=== PATIENT | female | born 1950 | race Caucasian/White ===

== ENCOUNTER → 2017-05-09 | Outpatient (CLI) | payer OTHER ==
--- NOTE | 2017-05-15 15:52 | MG ---
HISTORY: SCREENING Comparison: Multiple priors dating back to March 29, 2009 FINDINGS: Bilateral CC and MLO projections of the right and left breast were obtained. Scattered fibroglandula r tissue is seen to be present without significant interval change. No suspicious architectural dist ortion, mass or clustered microcalcifications can be observed to suggest malignancy. No skin thicken ing or nipple retraction is appreciated. No pathological lymphadenopathy can be identified. Benign- appearing nodules are noted within the right and left breast. IMPRESSION: NO RADIOGRAPHIC EVIDENCE OF MALIGNANCY. ACR CATEGORY 2 - benign findings. FOLLOW-UP EXAM 1 YEAR. Diagnostic CAD was utilized and reviewed. * 0 (ZERO) - ASSESSMENT INCOMPLETE; ADDITIONAL IMAGING IS NEEDED. * 1/1 (ONE) - NEGATIVE. * 2/II (TWO) - BENIGN FINDINGS. * 3/III (THREE) - PROBABLY BENIGN FINDING; SHORT INTERVAL FOLLOW-UP SUGGESTED. * 4/IV (FOUR) - SUSPICIOUS ABNORMALITY; BIOPSY SHOULD BE CONSIDERED. * 5/V (FIVE) - HIGHLY SUSPICIOUS OF MALIGNANCY; BIOPSY SHOULD BE PERFORMED. A NEGATIVE X-RAY REPORT SHOULD NOT DELAY BIOPSY IF A DOMINANT OR CLINICALLY SUSPICIOUS MASS IS PRESENT; 4 TO 8 PERCENT OF CANCERS ARE NOT IDENTIFIED BY X-RAY. A NEGA TIVE REPORT MAY REINFORCE THE CLINICAL IMPRESSION. ADENOSIS AND DENSE BREASTS MAY OBSCURE AN UNDERLY ING NEOPLASM. Reported By:
== END ==
LOC: RAD 07:51
PROVIDERS: ATTEND Internal Medicine
DX: Z12.31 Encounter for screening mammogram for malignant neoplasm of breast (principal)
CPT/HCPCS: 77067

== ENCOUNTER 2023-06-01 12:06 | Inpatient (IN) ==
[2023-06-01] MEDS ORDERED: ZOSYN VIAL 3.375 GRAMS 3.375 G in NS 100 ML IV 100 ML IV SCH (16:22)
[2023-06-01 16:57] LABS: BASOPHILS % (AUTO) 0.3 % (0.2-1.0); EOSINOPHILS % (AUTO) 0.4 % (0.9-2.9); HEMATOCRIT 40.1 % (36.0-47.0); HEMOGLOBIN 13.9 g/dL (12.0-16.0); LYMPHOCYTES # (AUTO) 3.3 X10^3/uL (1.3-2.9); LYMPHOCYTES % (AUTO) 33.6 % (21.0-51.0); MEAN CORPUSCULAR HEMOGLOBIN 28.9 pg (27.0-34.0); MEAN CORPUSCULAR HGB CONC 34.8 g/dL (33.0-35.0); MEAN PLATELET VOLUME 8.2 fL (7.4-11.0); MONOCYTES # (AUTO) 0.6 x10^3/uL (0.3-0.8); MONOCYTES % (AUTO) 6.6 % (0.0-13.0); NEUTROPHILS # (AUTO) 5.7 x10^3/uL (2.2-4.8); NEUTROPHILS % (AUTO) 59.1 % (42.0-75.0); PLATELET COUNT 234 X10^3/uL (150.0-450.0); RED BLOOD COUNT 4.83 X10^6/uL (3.5-5.4); RED CELL DISTRIBUTION WIDTH 12.7 % (11.6-16.5); WHITE BLOOD COUNT 9.7 X10^3/uL (3.6-10.0)
[2023-06-01 17:09] LABS: ALANINE AMINOTRANSFERASE 229 Units/L (12-78); ALBUMIN 3.5 g/dL (3.4-5.0); ALKALINE PHOSPHATASE 185 Units/L (46-116); ASPARTATE AMINO TRANSFERASE 121 Units/L (15-37); BLOOD UREA NITROGEN 10 mg/dL (7-18); CALCIUM 8.5 mg/dL (8.5-10.1); CARBON DIOXIDE 32.1 mmol/L (21-32); CHLORIDE 102 mmol/L (98-107); COR NA(FOR HYPERGLY) 141 mmol/L (136-145); CREATININE 0.71 mg/dL (0.55-1.02); GLUCOSE 112 mg/dL (65-99); POTASSIUM 3.2 mmol/L (3.5-5.1); SODIUM 141 mmol/L (136-145); TOTAL PROTEIN 7.2 g/dL (6.4-8.2); eGFR NON BLACK RACES > 60 (>60)
[2023-06-01] MEDS ORDERED: ZOSYN VIAL 3.375 GRAMS IV ONE (17:35)
[2023-06-01] MEDS ORDERED: NS 100 ML IV 100 ML ONE (17:36)
[2023-06-01] MEDS: NS 1,000 ML IV 1,000 ML IV SCH (17:42)
[2023-06-01] MEDS ORDERED: ULTRAM PO ONE (18:40)
[2023-06-01] MEDS ORDERED: ROXICODONE TAB 5 MG PO ONE (19:00)
[2023-06-01] MEDS ORDERED: REQUIP PO ONE (19:00)
[2023-06-01] MEDS ORDERED: NIFEDIPINE 60 MG PO SCH (21:00)
[2023-06-01] MEDS ORDERED: OXYCODONE 10 MG PO SCH (21:00)
[2023-06-01] MEDS: REQUIP PO SCH (21:20)
[2023-06-01] MEDS: ULTRAM PO SCH (21:21)
[2023-06-01] MEDS: LYRICA CAP 50 mg PO SCH (21:38)
[2023-06-01] MEDS: AMBIEN PO SCH (21:38)
[2023-06-01] MEDS: PROCARDIA XL 24-hr PO SCH (21:38)
[2023-06-01] MEDS: KLONOPIN TAB 0.5 MG PO SCH (21:39)
[2023-06-01] MEDS: PEPCID TAB 40 MG PO SCH (21:39)
[2023-06-01] MEDS: PROTONIX TAB 40 MG PO SCH (21:39)
[2023-06-01] MEDS: ILOTYCIN OPHTH OINT OP SCH (21:44)
[2023-06-01] MEDS: VOLTAREN 1 % GEL MULTI DOSE TUBE TOP SCH (21:44)
[2023-06-01] MEDS: ROXICODONE TAB 5 MG PO SCH (23:29)
[2023-06-02] MEDS: ZOSYN VIAL 3.375 GRAMS 3.375 G in NS 100 ML IV 100 ML IV SCH ×2 (00:01→12:59)
[2023-06-02] MEDS: LYRICA CAP 50 mg PO SCH ×3 (05:03→21:02)
[2023-06-02] MEDS: ULTRAM PO SCH ×3 (05:03→21:01)
[2023-06-02] MEDS: REQUIP PO SCH ×3 (05:03→21:01)
[2023-06-02] MEDS: ROXICODONE TAB 5 MG PO SCH ×2 (05:20→10:54)
[2023-06-02] MEDS: NS 1,000 ML IV 1,000 ML IV SCH ×2 (05:21→21:54)
[2023-06-02 05:55] LABS: BASOPHILS % (AUTO) 0.3 % (0.2-1.0); EOSINOPHILS # (AUTO) 0.1 x10^3/uL (0.0-0.2); EOSINOPHILS % (AUTO) 0.8 % (0.9-2.9); HEMATOCRIT 37.7 % (36.0-47.0); HEMOGLOBIN 13.1 g/dL (12.0-16.0); LYMPHOCYTES # (AUTO) 3.2 X10^3/uL (1.3-2.9); LYMPHOCYTES % (AUTO) 46.1 % (21.0-51.0); MEAN CORPUSCULAR HEMOGLOBIN 28.9 pg (27.0-34.0); MEAN CORPUSCULAR HGB CONC 34.7 g/dL (33.0-35.0); MEAN CORPUSCULAR VOLUME 83.3 fL (80.0-100.0); MEAN PLATELET VOLUME 8.3 fL (7.4-11.0); MONOCYTES # (AUTO) 0.5 x10^3/uL (0.3-0.8); MONOCYTES % (AUTO) 7.2 % (0.0-13.0); NEUTROPHILS # (AUTO) 3.2 x10^3/uL (2.2-4.8); NEUTROPHILS % (AUTO) 45.6 % (42.0-75.0); PLATELET COUNT 222 X10^3/uL (150.0-450.0); RED BLOOD COUNT 4.53 X10^6/uL (3.5-5.4); RED CELL DISTRIBUTION WIDTH 12.8 % (11.6-16.5)
[2023-06-02 06:07] LABS: ALANINE AMINOTRANSFERASE 288 Units/L (12-78); ALKALINE PHOSPHATASE 192 Units/L (46-116); ASPARTATE AMINO TRANSFERASE 184 Units/L (15-37); BLOOD UREA NITROGEN 8 mg/dL (7-18); CALCIUM 7.9 mg/dL (8.5-10.1); CARBON DIOXIDE 28.3 mmol/L (21-32); CHLORIDE 103 mmol/L (98-107); COR CA(FOR HYPOALB) 8.7 mg/dL (8.5-10.1); COR NA(FOR HYPERGLY) 142 mmol/L (136-145); CREATININE 0.74 mg/dL (0.55-1.02); GLUCOSE 180 mg/dL (65-99); POTASSIUM 3.1 mmol/L (3.5-5.1); SODIUM 140 mmol/L (136-145); TOTAL PROTEIN 6.6 g/dL (6.4-8.2); eGFR NON BLACK RACES > 60 (>60)
[2023-06-02] MEDS ORDERED: CONSULT PHARMACY - POTASSIUM & MAGNESIUM XX SCH (07:00)
[2023-06-02] MEDS: PROzac PO SCH (08:44)
[2023-06-02] MEDS: PEPCID TAB 40 MG PO SCH ×2 (08:44→21:02)
[2023-06-02] MEDS: PROCARDIA XL PO SCH ×2 (08:46→12:25)
[2023-06-02] MEDS: KLONOPIN TAB 0.5 MG PO SCH ×2 (08:48→21:02)
[2023-06-02] MEDS: TOPROL XL PO SCH (08:48)
[2023-06-02] MEDS: PROTONIX TAB 40 MG PO SCH ×2 (08:51→21:02)
[2023-06-02] MEDS: HYDROCHLOROTHIAZIDE 25 MG TAB PO SCH (08:51)
[2023-06-02] MEDS: K-DUR TAB 20 MEQ PO SCH ×2 (08:51→12:32)
[2023-06-02] MEDS ORDERED: NIFEDIPINE 30 MG PO SCH (09:00)
[2023-06-02] MEDS: FORTAZ or TAZICEF VIAL INJ 1 G in NS 100 ML IV 100 ML IV SCH ×3 (10:47→21:00)
[2023-06-02] MEDS ORDERED: ROXICODONE TAB 5 MG PO PRN (11:36)
--- NOTE | 2023-06-02 12:00 | DR.UPDATE ---
H&P Update Prescription drug monitoring program results: PDMP reviewed and no concerns identified H&P Reviewed: Yes Any changes to H&P?: Yes Changes noted:: IS A 73 YEAR OLD PATIENT OF OURS. SHE PRESENTED TO THE HOSPITAL A DIRECT ADMISSION FOR TREATMENT OF RIGHT LOWER EXTREMITY CELLULITIS. SHE REPORTS HAVING PAIN, SWELLING, AND REDNESS TO THE RIGHT FOOT AND GREAT TOE FOR THE PAST TWO WEEKS. ADDITIONALLY, SHE COMPLAINS OF WEAKNESS, FATIGUE, DECREASED APPETITE, AND DECREASED ORAL INTAKE. SHE HAS TAKEN AUGMENTIN 875-125MG BID AND DOXYCYCLINE TWICE A DAY WITHOUT IMPROVEMENT IN SYMPTOMS. ON ARRIVAL TO THE HOSPITAL, HER VITALS WERE: 97.9-85-20-95%-178/83. LABS WERE OBTAINED. WBC 9.7, RBC 4.83, HGB 13.9, HCT 40.1, PLT COUNT 234, SODIUM 141, POTASSIUM 3.2, CHLORIDE 102, CARBON DIOXIDE 32.1, BUN 10, CREATININE 0.71, GLUCOSE 112, CALCIUM 8.5, TOTAL BILI 0.80, AST 121, ALT 229, ALK PHOS 185, TOTAL PROTEIN 7.2, ALBUMIN 3.5. BLOOD CULTURES WERE SET UP. ON ADMISSION, SHE WAS STARTED ON NORMAL SALINE AT 80 ML/HR, LEVAQUIN 500MG IV DAILY, FORTAZ 1G IV Q8H. HER HOME MEDICATIONS OF VITAMIN D3, KLONOPIN, VOLTAREN GEL, ERYTHROMYCIN, FAMOTIDINE, PROZAC, HCTZ, TOPROL XL, PROCARDIA, OXYCODONE, PANTOPRAZOLE, PREGABALIN, ROPINIROLE, TRAMADOL, AND ZOLPIDEM. OTHERWISE, WE PLAN TO FOLLOW UP WITH AM LABS AND CONTINUE TO MONITOR. TIME SPENT ON CLINICAL ASSESSMENT, REVIEWING LABS AND IMAGING, DECISION MAKING, AND DOCUMENTATION GREATER THAN 75 MINUTES. Patient was examined?: Yes
[2023-06-02] MEDS: VOLTAREN 1 % GEL MULTI DOSE TUBE TOP SCH ×4 (12:25→21:03)
[2023-06-02] MEDS: LEVAQUIN PREMIX IV 500 MG 500 MG/100 ML BAG IV SCH (12:33)
[2023-06-02] MEDS: AMBIEN PO SCH (21:01)
[2023-06-02] MEDS: PROCARDIA XL 24-hr PO SCH (21:02)
[2023-06-02] MEDS: ILOTYCIN OPHTH OINT OP SCH (21:03)
[2023-06-03] MEDS: REQUIP PO SCH ×3 (05:00→21:29)
[2023-06-03] MEDS: ULTRAM PO SCH ×3 (05:00→21:29)
[2023-06-03] MEDS: FORTAZ or TAZICEF VIAL INJ 1 G in NS 100 ML IV 100 ML IV SCH ×3 (05:00→21:29)
[2023-06-03] MEDS: LYRICA CAP 50 mg PO SCH ×3 (05:07→21:29)
[2023-06-03 06:07] LABS: BASOPHILS % (AUTO) 0.4 % (0.2-1.0); EOSINOPHILS # (AUTO) 0.1 x10^3/uL (0.0-0.2); EOSINOPHILS % (AUTO) 1.5 % (0.9-2.9); HEMATOCRIT 36.3 % (36.0-47.0); HEMOGLOBIN 12.5 g/dL (12.0-16.0); LYMPHOCYTES # (AUTO) 3.7 X10^3/uL (1.3-2.9); LYMPHOCYTES % (AUTO) 50.4 % (21.0-51.0); MEAN CORPUSCULAR HEMOGLOBIN 28.8 pg (27.0-34.0); MEAN CORPUSCULAR HGB CONC 34.4 g/dL (33.0-35.0); MEAN CORPUSCULAR VOLUME 83.6 fL (80.0-100.0); MEAN PLATELET VOLUME 8.4 fL (7.4-11.0); MONOCYTES # (AUTO) 0.6 x10^3/uL (0.3-0.8); MONOCYTES % (AUTO) 7.8 % (0.0-13.0); NEUTROPHILS # (AUTO) 2.9 x10^3/uL (2.2-4.8); NEUTROPHILS % (AUTO) 39.9 % (42.0-75.0); PLATELET COUNT 232 X10^3/uL (150.0-450.0); RED BLOOD COUNT 4.35 X10^6/uL (3.5-5.4); RED CELL DISTRIBUTION WIDTH 12.6 % (11.6-16.5); WHITE BLOOD COUNT 7.3 X10^3/uL (3.6-10.0)
[2023-06-03 06:20] LABS: ALANINE AMINOTRANSFERASE 177 Units/L (12-78); ALBUMIN 2.8 g/dL (3.4-5.0); ALKALINE PHOSPHATASE 162 Units/L (46-116); ASPARTATE AMINO TRANSFERASE 39 Units/L (15-37); BLOOD UREA NITROGEN 8 mg/dL (7-18); CALCIUM 8.1 mg/dL (8.5-10.1); CARBON DIOXIDE 31.8 mmol/L (21-32); CHLORIDE 102 mmol/L (98-107); COR CA(FOR HYPOALB) 9.1 mg/dL (8.5-10.1); COR NA(FOR HYPERGLY) 141 mmol/L (136-145); CREATININE 0.73 mg/dL (0.55-1.02); GLUCOSE 138 mg/dL (65-99); POTASSIUM 3.4 mmol/L (3.5-5.1); SODIUM 140 mmol/L (136-145); TOTAL PROTEIN 6.2 g/dL (6.4-8.2); eGFR NON BLACK RACES > 60 (>60)
[2023-06-03] MEDS ORDERED: CONSULT PHARMACY - POTASSIUM & MAGNESIUM XX SCH (07:00)
[2023-06-03] MEDS ORDERED: K-DUR TAB 20 MEQ PO SCH (09:00)
[2023-06-03] MEDS: LEVAQUIN PREMIX IV 500 MG 500 MG/100 ML BAG IV SCH (09:07)
[2023-06-03] MEDS: KLONOPIN TAB 0.5 MG PO SCH ×2 (09:07→21:28)
[2023-06-03] MEDS: PEPCID TAB 40 MG PO SCH ×2 (09:08→21:30)
[2023-06-03] MEDS: PROTONIX TAB 40 MG PO SCH ×2 (09:08→21:30)
[2023-06-03] MEDS: PROCARDIA XL PO SCH (09:08)
[2023-06-03] MEDS: PROzac PO SCH (09:08)
[2023-06-03] MEDS: TOPROL XL PO SCH (09:08)
[2023-06-03] MEDS: HYDROCHLOROTHIAZIDE 25 MG TAB PO SCH (09:08)
[2023-06-03] MEDS: VOLTAREN 1 % GEL MULTI DOSE TUBE TOP SCH ×4 (09:32→21:30)
--- NOTE | 2023-06-03 12:36 | PCM.PROG ---
Progress Note Progress Note for Day of Date of Exam: 06/03/23 Subjective Subjective: Patient seen at bedside, no acute events overnight. She is currently admitted for right big toe cellulitis. She failed outpatient antibiotics. She is currently seeing Podiatry and has had 3 debridements for that toe infection. She states the redness has improved since yesterday. Labs/imaging reviewed - K: 3.4 WBC 7.3 Hgb 12.5 AP 162 AST/ALT 39/177 Plan: continue IV levaquin and fortaz. Follow cultures. Replace K. Continue hydration. Continue home medications. Monitor toe redness and swelling. Monitor AM labs/imaging. Past Medical Family Social History Allergies: Allergies DAGOBERTO Inhibitors Allergy (Verified 06/01/23 17:19) aspirin Allergy (Verified 06/01/23 17:19) corn Allergy (Verified 06/02/23 09:10) Milk Containing Products (Dairy) Allergy (Verified 06/02/23 09:10) procaine [From Novocain] Allergy (Verified 06/01/23 17:19) soy Allergy (Verified 06/02/23 09:11) Sjhtfay-PRJ-NtE Reductase Inhibitor Allergy (Verified 06/01/23 17:19) Vital Signs and I&O's Vital Signs: Vital Signs Temperature 98.6 F Temperature 97.9 F Pulse Rate [Left Brachial] 61 Pulse Rate [Left Brachial] 84 Respiratory Rate 20 Respiratory Rate 20 Respiratory Rate 18 Respiratory Rate 18 Blood Pressure [Left Arm] 107/53 Blood Pressure [Left Arm] 173/78 O2 Sat by Pulse Oximetry 97 O2 Sat by Pulse Oximetry 98 Intake and Output: Intake & Output 05/31/23 06/01/23 06/02/23 06/03/23 23:59 23:59 23:59 23:59 Intake Total 565 / 565 3611 / 3611 452 / 452 Output Total 0 / 0 Balance 565 / 565 3611 / 3611 452 / 452 Physical Exam Oriented: Normal Throat: Normal Respiratory: Normal Cardiovascular: Normal Palpation: Normal Tenderness: Normal Skin: Red, Tender and Wound (Right first toe: erythema and warmth noted, slight swelling, no drainage ) Musculoskeletal: Normal Psychiatric: Normal Mood Description: Calm Affect: Normal Speech Pattern: Clear and Appropriate Laboratory and Diagnostics 06/03/23 05:25 06/03/23 05:25 Labs: Laboratory WBC 7.3 X10^3/uL (3.6-10.0) 06/03/23 05:25 RBC 4.35 X10^6/uL (3.5-5.4) 06/03/23 05:25 Hgb 12.5 g/dL (12.0-16.0) 06/03/23 05:25 Hct 36.3 % (36.0-47.0) 06/03/23 05:25 MCV 83.6 fL (80.0-100.0) 06/03/23 05:25 MCH 28.8 pg (27.0-34.0) 06/03/23 05:25 MCHC 34.4 g/dL (33.0-35.0) 06/03/23 05:25 RDW 12.6 % (11.6-16.5) 06/03/23 05:25 Plt Count 232 X10^3/uL (150.0-450.0) 06/03/23 05:25 MPV 8.4 fL (7.4-11.0) 06/03/23 05:25 Neut % (Auto) 39.9 % (42.0-75.0) L 06/03/23 05:25 Lymph % (Auto) 50.4 % (21.0-51.0) 06/03/23 05:25 [place] % (Auto) 7.8 % (0.0-13.0) 06/03/23 05:25 Eos % (Auto) 1.5 % (0.9-2.9) 06/03/23 05:25 Baso % (Auto) 0.4 % (0.2-1.0) 06/03/23 05:25 Neut # (Auto) 2.9 x10^3/uL (2.2-4.8) 06/03/23 05:25 Lymph # (Auto) 3.7 X10^3/uL (1.3-2.9) H 06/03/23 05:25 [place] # (Auto) 0.6 x10^3/uL (0.3-0.8) 06/03/23 05:25 Eos # (Auto) 0.1 x10^3/uL (0.0-0.2) 06/03/23 05:25 Baso # (Auto) 0.0 X10^3/uL (0.0-0.1) 06/03/23 05:25 Absolute Nucleated RBC 0.1 /100WBC 06/03/23 05:25 Sodium 140 mmol/L (136-145) 06/03/23 05:25 Corrected Sodium 141 mmol/L (136-145) 06/03/23 05:25 Potassium 3.4 mmol/L (3.5-5.1) L 06/03/23 05:25 Chloride 102 mmol/L (98-107) 06/03/23 05:25 Carbon Dioxide 31.8 mmol/L (21-32) 06/03/23 05:25 BUN 8 mg/dL (7-18) 06/03/23 05:25 Creatinine 0.73 mg/dL (0.55-1.02) 06/03/23 05:25 Est GFR (MDRD) Af Amer > 60 (>60) 06/03/23 05:25 Est GFR (MDRD) Non-Af > 60 (>60) 06/03/23 05:25 Glucose 138 mg/dL (65-99) H 06/03/23 05:25 Calcium 8.1 mg/dL (8.5-10.1) L 06/03/23 05:25 Corrected Calcium 9.1 mg/dL (8.5-10.1) 06/03/23 05:25 Magnesium 2.0 mg/dL (2.0-2.9) 06/03/23 05:25 Total Bilirubin 0.50 mg/dL (0.2-1.0) 06/03/23 05:25 AST 39 Units/L (15-37) H 06/03/23 05:25 ALT 177 Units/L (12-78) H 06/03/23 05:25 Alkaline Phosphatase 162 Units/L (46-116) H 06/03/23 05:25 Creatine Kinase 58 Units/L (26-192) 06/02/23 05:23 Total Protein 6.2 g/dL (6.4-8.2) L 06/03/23 05:25 Albumin 2.8 g/dL (3.4-5.0) L 06/03/23 05:25 Globulin 3.4 g/dL (2.5-4.5) 06/03/23 05:25 Albumin/Globulin Ratio 0.8 Ratio (1.1-2.1) L 06/03/23 05:25
[2023-06-03] MEDS: NS 1,000 ML IV 1,000 ML IV SCH ×2 (16:54→21:29)
[2023-06-03] MEDS: ILOTYCIN OPHTH OINT OP SCH (21:28)
[2023-06-03] MEDS: AMBIEN PO SCH (21:28)
[2023-06-03] MEDS: PROCARDIA XL 24-hr PO SCH (21:30)
[2023-06-04] MEDS: FORTAZ or TAZICEF VIAL INJ 1 G in NS 100 ML IV 100 ML IV SCH (05:00)
[2023-06-04] MEDS: ULTRAM PO SCH (05:01)
[2023-06-04] MEDS: LYRICA CAP 50 mg PO SCH (05:02)
[2023-06-04] MEDS: REQUIP PO SCH (05:02)
[2023-06-04 05:48] VITALS: O2SAT 97
[2023-06-04 06:20] LABS: BASOPHILS % (AUTO) 0.4 % (0.2-1.0); EOSINOPHILS # (AUTO) 0.1 x10^3/uL (0.0-0.2); EOSINOPHILS % (AUTO) 1.8 % (0.9-2.9); HEMATOCRIT 37.3 % (36.0-47.0); HEMOGLOBIN 12.6 g/dL (12.0-16.0); LYMPHOCYTES # (AUTO) 3.2 X10^3/uL (1.3-2.9); LYMPHOCYTES % (AUTO) 42.1 % (21.0-51.0); MEAN CORPUSCULAR HEMOGLOBIN 28.6 pg (27.0-34.0); MEAN CORPUSCULAR HGB CONC 33.9 g/dL (33.0-35.0); MEAN CORPUSCULAR VOLUME 84.4 fL (80.0-100.0); MEAN PLATELET VOLUME 8.1 fL (7.4-11.0); MONOCYTES # (AUTO) 0.5 x10^3/uL (0.3-0.8); MONOCYTES % (AUTO) 7.2 % (0.0-13.0); NEUTROPHILS # (AUTO) 3.7 x10^3/uL (2.2-4.8); NEUTROPHILS % (AUTO) 48.5 % (42.0-75.0); PLATELET COUNT 243 X10^3/uL (150.0-450.0); RED BLOOD COUNT 4.42 X10^6/uL (3.5-5.4); RED CELL DISTRIBUTION WIDTH 12.8 % (11.6-16.5); WHITE BLOOD COUNT 7.6 X10^3/uL (3.6-10.0)
[2023-06-04 06:34] LABS: ALANINE AMINOTRANSFERASE 125 Units/L (12-78); ALBUMIN 2.9 g/dL (3.4-5.0); ALKALINE PHOSPHATASE 154 Units/L (46-116); ASPARTATE AMINO TRANSFERASE 20 Units/L (15-37); BLOOD UREA NITROGEN 8 mg/dL (7-18); CALCIUM 8.5 mg/dL (8.5-10.1); CHLORIDE 99 mmol/L (98-107); COR CA(FOR HYPOALB) 9.4 mg/dL (8.5-10.1); COR NA(FOR HYPERGLY) 132 mmol/L (136-145); CREATININE 0.74 mg/dL (0.55-1.02); GLUCOSE 144 mg/dL (65-99); POTASSIUM 3.9 mmol/L (3.5-5.1); SODIUM 131 mmol/L (136-145); TOTAL PROTEIN 6.4 g/dL (6.4-8.2); eGFR NON BLACK RACES > 60 (>60)
[2023-06-04] MEDS: KLONOPIN TAB 0.5 MG PO SCH (10:30)
[2023-06-04] MEDS: PROzac PO SCH (10:30)
[2023-06-04] MEDS: PROCARDIA XL PO SCH (10:30)
[2023-06-04] MEDS: LEVAQUIN PREMIX IV 500 MG 500 MG/100 ML BAG IV SCH (10:30)
[2023-06-04] MEDS: HYDROCHLOROTHIAZIDE 25 MG TAB PO SCH (10:30)
[2023-06-04] MEDS: PROTONIX TAB 40 MG PO SCH (10:30)
[2023-06-04] MEDS: TOPROL XL PO SCH (10:30)
[2023-06-04] MEDS: PEPCID TAB 40 MG PO SCH (10:30)
[2023-06-04 11:34] VITALS: RESP 20
[2023-06-04] MEDS: NS 1,000 ML IV 1,000 ML IV SCH (11:36)
[2023-06-04] MEDS: VOLTAREN 1 % GEL MULTI DOSE TUBE TOP SCH (11:36)
[2023-06-04 13:43] VITALS: BP 145/72; PULSE 74; TEMP 98.2
--- NOTE | 2023-06-04 13:51 | W.DIS.FURT ---
Summary of Discharge Discharge Summary of Date Date of Exam: 06/04/23 Admission Date Date of Admission: 06/02/23 Admission Diagnosis Hospital Course: Ms Arnold is a 73y/o female with a PMH chronic right toe ulcer, chronic pain, anxiety , HTN and GERD presented with worsening right big toe redness and swelling. She sees Podiatry and has had 3 I&D's on that foot. She states she noticed discoloration and swelling recently. She was treated outpatient with abx but did not see any improvement so was admitted for further management. She was started on IV Levaquin and Fortaz. Her labs and electrolytes were monitored daily, replaced as needed. Her right foot and toe looked better, able to move and ambulate. Patient was stable for discharge on PO abx. Patient was told her Na was slightly low to drink more gatorade/electrolytes. She will follow up with Podiatry and PCP as scheduled. Vital Signs: Vital Signs (72 hours) 06/01/23 15:20 06/01/23 16:00 06/01/23 14:50 Temperature 97.9 F 98.0 F Pulse Rate [Bilateral Brachial] 85 70 Pulse Rate [Left Brachial] Respiratory Rate 20 20 Blood Pressure [Left Arm] 178/83 152/71 O2 Sat by Pulse Oximetry 95 98 Oxygen Delivery Method Room Air Room Air Room Air 06/01/23 19:54 06/01/23 19:52 06/01/23 20:52 Temperature Pulse Rate [Bilateral Brachial] Pulse Rate [Left Brachial] Respiratory Rate 18 18 18 Blood Pressure [Left Arm] O2 Sat by Pulse Oximetry Oxygen Delivery Method 06/01/23 20:54 06/01/23 19:00 06/01/23 20:00 Temperature 98.2 F Pulse Rate [Bilateral Brachial] 70 Pulse Rate [Left Brachial] Respiratory Rate 18 20 Blood Pressure [Left Arm] 152/65 O2 Sat by Pulse Oximetry 97 Oxygen Delivery Method Room Air Room Air 06/02/23 00:00 06/02/23 04:00 06/02/23 05:03 Temperature 98.1 F 97.9 F Pulse Rate [Bilateral Brachial] 80 67 Pulse Rate [Left Brachial] Respiratory Rate 20 20 18 Blood Pressure [Left Arm] 121/61 125/67 O2 Sat by Pulse Oximetry 95 96 Oxygen Delivery Method Room Air Room Air 06/02/23 06:03 06/02/23 09:05 06/02/23 10:54 Temperature Pulse Rate [Bilateral Brachial] Pulse Rate [Left Brachial] Respiratory Rate 18 18 Blood Pressure [Left Arm] O2 Sat by Pulse Oximetry Oxygen Delivery Method Room Air 06/02/23 11:45 06/02/23 14:08 06/02/23 11:54 Temperature 97.7 F Pulse Rate [Bilateral Brachial] 86 Pulse Rate [Left Brachial] Respiratory Rate 20 18 18 Blood Pressure [Left Arm] 136/79 O2 Sat by Pulse Oximetry 98 Oxygen Delivery Method Room Air 06/02/23 13:35 06/02/23 15:08 06/02/23 17:42 Temperature 98.5 F 97.9 F Pulse Rate [Bilateral Brachial] 67 68 Pulse Rate [Left Brachial] Respiratory Rate 20 18 20 Blood Pressure [Left Arm] 122/65 151/77 O2 Sat by Pulse Oximetry 98 97 Oxygen Delivery Method Room Air Room Air 06/02/23 16:08 06/02/23 21:01 06/02/23 19:00 Temperature Pulse Rate [Bilateral Brachial] Pulse Rate [Left Brachial] Respiratory Rate 18 20 Blood Pressure [Left Arm] O2 Sat by Pulse Oximetry Oxygen Delivery Method Room Air 06/02/23 20:00 06/02/23 22:01 06/03/23 00:00 Temperature 98.1 F 97.7 F Pulse Rate [Bilateral Brachial] 66 78 Pulse Rate [Left Brachial] Respiratory Rate 20 20 20 Blood Pressure [Left Arm] 140/67 126/59 O2 Sat by Pulse Oximetry 97 96 Oxygen Delivery Method Room Air Room Air 06/03/23 04:00 06/03/23 05:00 06/03/23 06:00 Temperature 97.7 F Pulse Rate [Bilateral Brachial] 66 Pulse Rate [Left Brachial] Respiratory Rate 20 18 18 Blood Pressure [Left Arm] 121/57 O2 Sat by Pulse Oximetry 97 Oxygen Delivery Method Room Air 06/03/23 08:00 06/03/23 07:00 06/03/23 11:43 Temperature 97.9 F 98.6 F Pulse Rate [Bilateral Brachial] Pulse Rate [Left Brachial] 84 61 Respiratory Rate 20 20 Blood Pressure [Left Arm] 173/78 107/53 O2 Sat by Pulse Oximetry 98 97 Oxygen Delivery Method Room Air Room Air Room Air 06/03/23 13:09 06/03/23 16:00 06/03/23 14:09 Temperature 98.0 F Pulse Rate [Bilateral Brachial] Pulse Rate [Left Brachial] 75 Respiratory Rate 18 20 18 Blood Pressure [Left Arm] 142/77 O2 Sat by Pulse Oximetry 95 Oxygen Delivery Method Room Air 06/03/23 17:55 06/04/23 05:01 06/03/23 18:55 Temperature Pulse Rate [Bilateral Brachial] Pulse Rate [Left Brachial] Respiratory Rate 18 18 18 Blood Pressure [Left Arm] O2 Sat by Pulse Oximetry Oxygen Delivery Method 06/03/23 21:29 06/03/23 19:00 06/03/23 20:00 Temperature 97.8 F Pulse Rate [Bilateral Brachial] Pulse Rate [Left Brachial] 67 Respiratory Rate 18 18 Blood Pressure [Left Arm] 125/70 O2 Sat by Pulse Oximetry 97 Oxygen Delivery Method Room Air Room Air 06/03/23 22:29 06/03/23 23:58 06/04/23 04:00 Temperature 97.5 F L 97.8 F Pulse Rate [Bilateral Brachial] Pulse Rate [Left Brachial] 62 76 Respiratory Rate 18 20 18 Blood Pressure [Left Arm] 135/66 143/71 O2 Sat by Pulse Oximetry 99 97 Oxygen Delivery Method Room Air Room Air 06/04/23 06:01 Temperature Pulse Rate [Bilateral Brachial] Pulse Rate [Left Brachial] Respiratory Rate 18 Blood Pressure [Left Arm] O2 Sat by Pulse Oximetry Oxygen Delivery Method Labs: Laboratory Last Values WBC 7.6 X10^3/uL (3.6-10.0) 06/04/23 05:47 RBC 4.42 X10^6/uL (3.5-5.4) 06/04/23 05:47 Hgb 12.6 g/dL (12.0-16.0) 06/04/23 05:47 Hct 37.3 % (36.0-47.0) 06/04/23 05:47 MCV 84.4 fL (80.0-100.0) 06/04/23 05:47 MCH 28.6 pg (27.0-34.0) 06/04/23 05:47 MCHC 33.9 g/dL (33.0-35.0) 06/04/23 05:47 RDW 12.8 % (11.6-16.5) 06/04/23 05:47 Plt Count 243 X10^3/uL (150.0-450.0) 06/04/23 05:47 MPV 8.1 fL (7.4-11.0) 06/04/23 05:47 Neut % (Auto) 48.5 % (42.0-75.0) 06/04/23 05:47 Lymph % (Auto) 42.1 % (21.0-51.0) 06/04/23 05:47 [place] % (Auto) 7.2 % (0.0-13.0) 06/04/23 05:47 Eos % (Auto) 1.8 % (0.9-2.9) 06/04/23 05:47 Baso % (Auto) 0.4 % (0.2-1.0) 06/04/23 05:47 Neut # (Auto) 3.7 x10^3/uL (2.2-4.8) 06/04/23 05:47 Lymph # (Auto) 3.2 X10^3/uL (1.3-2.9) H 06/04/23 05:47 [place] # (Auto) 0.5 x10^3/uL (0.3-0.8) 06/04/23 05:47 Eos # (Auto) 0.1 x10^3/uL (0.0-0.2) 06/04/23 05:47 Baso # (Auto) 0.0 X10^3/uL (0.0-0.1) 06/04/23 05:47 Absolute Nucleated RBC 0.1 /100WBC 06/04/23 05:47 Sodium 131 mmol/L (136-145) L 06/04/23 05:47 Corrected Sodium 132 mmol/L (136-145) L 06/04/23 05:47 Potassium 3.9 mmol/L (3.5-5.1) 06/04/23 05:47 Chloride 99 mmol/L (98-107) 06/04/23 05:47 Carbon Dioxide 34.0 mmol/L (21-32) H 06/04/23 05:47 BUN 8 mg/dL (7-18) 06/04/23 05:47 Creatinine 0.74 mg/dL (0.55-1.02) 06/04/23 05:47 Est GFR (MDRD) Af Amer > 60 (>60) 06/04/23 05:47 Est GFR (MDRD) Non-Af > 60 (>60) 06/04/23 05:47 Glucose 144 mg/dL (65-99) H 06/04/23 05:47 Calcium 8.5 mg/dL (8.5-10.1) 06/04/23 05:47 Corrected Calcium 9.4 mg/dL (8.5-10.1) 06/04/23 05:47 Magnesium 2.0 mg/dL (2.0-2.9) 06/03/23 05:25 Total Bilirubin 0.50 mg/dL (0.2-1.0) 06/04/23 05:47 AST 20 Units/L (15-37) 06/04/23 05:47 ALT 125 Units/L (12-78) H 06/04/23 05:47 Alkaline Phosphatase 154 Units/L (46-116) H 06/04/23 05:47 Creatine Kinase 58 Units/L (26-192) 06/02/23 05:23 Total Protein 6.4 g/dL (6.4-8.2) 06/04/23 05:47 Albumin 2.9 g/dL (3.4-5.0) L 06/04/23 05:47 Globulin 3.5 g/dL (2.5-4.5) 06/04/23 05:47 Albumin/Globulin Ratio 0.8 Ratio (1.1-2.1) L 06/04/23 05:47 Reason For Visit: RIGHT LOWER EXT CELLULITIS Discharge Diagnosis All Active Problems (Updated 06/04/23 @ 10:50 by Ingris Omer) Cellulitis of right foot (Acute) Plan of Treatment: Continue with present treatment and follow up plan. Pt is to keep follow up appointment as instructed and take medications as ordered. Discharge Medications Discharge Medications: DAGOBERTO Inhibitors Allergy (Verified 06/01/23 17:19) aspirin Allergy (Verified 06/01/23 17:19) corn Allergy (Verified 06/02/23 09:10) Milk Containing Products (Dairy) Allergy (Verified 06/02/23 09:10) procaine [From Novocain] Allergy (Verified 06/01/23 17:19) soy Allergy (Verified 06/02/23 09:11) [place]-FNB-PdJ Reductase Inhibitor Allergy (Verified 06/01/23 17:19) CONTINUE taking the following medications cholecalciferol (vitamin D3) 125 mcg (5,000 unit) tablet (Vitamin D3) 125 mcg PO WEEKLY 06/01/23 [History] clonazepam 0.5 mg tablet (Klonopin) 0.5 mg PO BID 06/01/23 [History] diclofenac sodium 1 % topical gel 2 g topical QID 06/01/23 [History] erythromycin 5 mg/gram (0.5 %) eye ointment 1 applic ophthalmic (eye) HS 06/01/23 [History] famotidine 40 mg tablet 40 mg PO BID 06/01/23 [History] fluoxetine 20 mg tablet 20 mg PO DAILY 06/01/23 [History] hydrochlorothiazide 25 mg tablet 25 mg PO DAILY 06/01/23 [History] metoprolol succinate 25 mg tablet,extended release 24 hr (Toprol XL) 25 mg PO DAILY 06/01/23 [History] nifedipine 30 mg tablet,extended release 30 mg PO DAILY 06/01/23 [History] nifedipine 60 mg tablet,extended release 60 mg PO HS 06/01/23 [History] oxycodone 10 mg tablet 10 mg PO QID 06/01/23 [History] pantoprazole 40 mg tablet,delayed release 40 mg PO BID 06/01/23 [History] pregabalin 50 mg capsule (Lyrica) 50 mg PO TID 06/01/23 [History] ropinirole 2 mg tablet 2 mg PO TID 06/01/23 [History] tramadol 50 mg tablet 100 mg PO TID 06/01/23 [History] valsartan 320 mg tablet (Diovan) 320 mg PO QDAY PRN 06/01/23 [History] zolpidem 10 mg tablet (Ambien) 10 mg PO HS 06/01/23 [History] New Prescriptions levofloxacin 500 mg tablet 500 mg PO QDAY 7 days #7 tabs 06/04/23 [Rx] Discharge Disposition Discharge Disposition: Home Discharge Condition: Stable Discharge Plan Discharge Plan Hospital Course: Ms Arnold is a 73y/o female with a PMH chronic right toe ulcer, chronic pain, anxiety , HTN and GERD presented with worsening right big toe redness and swelling. She sees Podiatry and has had 3 I&D's on that foot. She states she noticed discoloration and swelling recently. She was treated outpatient with abx but did not see any improvement so was admitted for further management. She was started on IV Levaquin and Fortaz. Her labs and electrolytes were monitored daily, replaced as needed. Her right foot and toe looked better, able to move and ambulate. Patient was stable for discharge on PO abx. Patient was told her Na was slightly low to drink more gatorade/electrolytes. She will follow up with Podiatry and PCP as scheduled. Patient Disposition: 01 HOME, SELF-CARE Condition: Stable Health Concerns: Post Hospitalization: new medications and changes needed to prevent readmission or further decline. Pt educated and given instructions on all concerns. Plan of Treatment: Continue with present treatment and follow up plan. Pt is to keep follow up appointment as instructed and take medications as ordered. Prescription drug monitoring program results: PDMP reviewed and no concerns identified Prescriptions: New levofloxacin 500 mg tablet 500 mg PO QDAY 7 Days Qty: 7 0RF Continued famotidine 40 mg Tablet 40 mg PO BID erythromycin 5 mg/gram (0.5 %) Ointment 1 applic OPHTHALMIC (EYE) HS valsartan [Diovan] 320 mg Tablet 320 mg PO QDAY PRN zolpidem [Ambien] 10 mg Tablet 10 mg PO HS diclofenac sodium 1 % Gel 2 g TOPICAL QID Rx Instructions: apply to single elbow, wrist or hand; for hand includes palm/fingers/back of hand clonazepam [Klonopin] 0.5 mg Tablet 0.5 mg PO BID nifedipine 30 mg Tablet Extended Release 30 mg PO DAILY tramadol 50 mg Tablet 100 mg PO TID ropinirole 2 mg Tablet 2 mg PO TID pantoprazole 40 mg Tablet,Delayed Release (Dr/Ec) 40 mg PO BID fluoxetine 20 mg Tablet 20 mg PO DAILY hydrochlorothiazide 25 mg Tablet 25 mg PO DAILY metoprolol succinate [Toprol XL] 25 mg Tablet Extended Release 24 Hr 25 mg PO DAILY nifedipine 60 mg Tablet Extended Release 60 mg PO HS pregabalin [Lyrica] 50 mg Capsule 50 mg PO TID oxycodone 10 mg Tablet 10 mg PO QID cholecalciferol (vitamin D3) [Vitamin D3] 125 mcg (5,000 unit) Tablet 125 mcg PO WEEKLY Discontinued doxycycline monohydrate 40 mg Capsule,Ir - Delay Rel,Biphase 40 mg PO BID prednisone 2.5 mg Tablet 2.5 mg PO TID Follow ups/Referrals Follow ups/Referrals: Luis Felipe Easley [Primary Care Provider] - 1 WEEK Instructions Instructions: Cellulitis, Adult, [place] Stand Alone Forms: Excuse From Work or School, Post Hospital Follow Up Care
[2023-06-07] MEDS ORDERED: VITAMIN D3 125 mcg (5,000 UNITS) PO SCH (09:00)
== END 2023-06-04 13:10 | disposition home or self-care (01) | DRG 603 ==
LOC: MED/SURG → OBSVTOIN 14:38 → INTOOBSV 06-03 09:00 → UNDODISOB 06-04 13:10
PROVIDERS: ADMIT Internal Medicine; ATTEND Internal Medicine
DX: E87.1 Hypo-osmolality and hyponatremia; R73.09 Other abnormal glucose; F41.8 Other specified anxiety disorders; L03.031 Cellulitis of right toe; K21.9 Gastro-esophageal reflux disease without esophagitis